=== PATIENT | female | born 1985 | race African-American/Black ===

== ENCOUNTER 2019-10-10 14:37 | Outpatient (CLI) | payer OTHER ==
[2019-10-10 15:52] LABS: BASOPHILS % (AUTO) 0.5 % (0-1); EOSINOPHILS # (AUTO) 0.1 X10'3 (0-0.9); EOSINOPHILS % (AUTO) 1.1 % (0-6); HEMATOCRIT 38.8 % (35.0-45.0); LYMPHOCYTES # (AUTO) 2.9 X10'3 (1.1-4.8); LYMPHOCYTES % (AUTO) 38.8 % (21-51); MEAN CORPUSCULAR HEMOGLOBIN 28.8 PG (27.0-31.0); MEAN CORPUSCULAR HGB CONC 33.6 g/dL (33.0-36.5); MEAN CORPUSCULAR VOLUME 85.6 FL (78-98); MEAN PLATELET VOLUME 7.4 FL (7.4-10.4); MONOCYTES # (AUTO) 0.4 X10'3 (0-0.9); MONOCYTES % (AUTO) 5.8 % (2-12); NEUTROPHILS % (AUTO) 53.8 % (42-75); PLATELET COUNT 345 X10'3 (140-440); RED BLOOD COUNT 4.53 X10'6 (4.20-5.60); RED CELL DISTRIBUTION WIDTH 13.6 % (11.5-14.5); WHITE BLOOD COUNT 7.4 X10'3 (4.5-11.0)
[2019-10-10 15:59] LABS: HEMOGLOBIN A1C 9.4 % (4.5-6.2)
[2019-10-13 05:09] LABS: RUBELLA ANTIBODIES, IGG 7.87 index (Immune >0.99)
[2019-10-13 07:09] LABS: ESTRADIOL 32.9 pg/mL (.); FSH, SERUM 2.7 mIU/mL (.); PROGESTERONE 0.5 ng/mL (.); PROLACTIN 7.1 ng/mL (4.8-23.3)
[2019-10-13 08:10] LABS: LUTEINIZING HORMONE 2.8 mIU/mL (.)
[2019-10-14 08:10] LABS: TESTOSTERONE, FREE, DIRECT 1.1 pg/mL (0.0-4.2)
== END 2019-10-10 23:59 | disposition home or self-care (01) ==
LOC: LAB 14:37
DX: N92.6 Irregular menstruation, unspecified (principal)
CPT/HCPCS: 36415; 82670; 83001; 83002; 83036; 84144; 84146; 84402; 84439; 84443; 85025; 86762

== ENCOUNTER 2024-02-08 10:38 | Outpatient (CLI) | payer MEDICAID | END 2024-02-08 23:59 | disposition home or self-care (01) | LOC: RAD 10:38 | PROVIDERS: ATTEND Physician Assistant | DX: O09.523 Supervision of elderly multigravida, third trimester (principal); Z3A.00 Weeks of gestation of pregnancy not specified | CPT/HCPCS: 76815 ==